=== PATIENT | male | born 1990 ===

== ENCOUNTER 2021-05-26 07:39 | Emergency (ER) | payer OTHER ==
[~2021-05-26] VITALS: Ht 165.1 cm; Wt 84.8 kg
[2021-05-26] MEDS ORDERED: ORPHENADRINE C100 MG PO (10:29)
[2021-05-26] MEDS ORDERED: KETO10TA2 PO (10:29)
== END 2021-05-26 10:43 | disposition home or self-care (01) ==
LOC: ER 07:39
DX: M79.652 Pain in left thigh (principal); M79.651 Pain in right thigh; M54.5 Low back pain

== ENCOUNTER 2021-07-28 09:49 | Emergency (ER) | payer OTHER ==
[~2021-07-28] VITALS: Ht 165.1 cm; Wt 88.9 kg
[~2021-07-28 09:49] MED LIST: KETO10TA2 PO; ORPHENADRINE C100 MG PO
[2021-07-28] MEDS ORDERED: CYCLOBENZAPRINE10 MG PO (11:48)
[2021-07-28] MEDS ORDERED: DICLOFENAC POTA50 MG PO (11:48)
== END 2021-07-28 12:14 | disposition home or self-care (01) ==
LOC: ER 09:49
DX: M62.830 Muscle spasm of back (principal)